=== PATIENT | female | born 1975 | race Caucasian/White ===

== ENCOUNTER 2020-09-18 15:01 | Outpatient (CLI) | payer MEDICAID ==
--- NOTE | 2020-09-18 16:47 | XRAY Report ---
PROCEDURE: Shoulder 3 View RT INDICATIONS: SHOULDER JOINT PAIN, RIGHT TECHNIQUE: 3 views of the shoulder were acquired. COMPARISON: None. FINDINGS: Bones: No fractures or dislocations. No suspicious bony lesions. Visualized ribs appear intact. Mi ld acromioclavicular narrowing. Residual high riding appearance of the humeral head. Soft tissues: No suspicious soft tissue calcifications. Prominent calcific tendinitis is present. IMPRESSION: 1. Prominent calcific tendinitis. 2. High riding humeral head which can be seen with rotator cuff pathology. Reviewed by: Cintia Jennings MD on 09/18/2020 4:45 PM PST Approved by: Cintia Jennings MD on 09/18/2020 4:45 PM PST Station ID: [id number]
== END 2020-09-18 23:59 ==
LOC: DI.N 15:01
PROVIDERS: ATTEND Nurse Practitioner
DX: M75.31 Calcific tendinitis of right shoulder (principal)

== ENCOUNTER 2021-02-03 08:17 | Outpatient (CLI) | payer MEDICAID ==
[2021-02-03 08:46] LABS: BASOPHILS # (AUTO) 0.1 10^3/uL (0.0-0.1); BASOPHILS % (AUTO) 0.8 %; EOSINOPHILS # (AUTO) 0.3 10^3/uL (0.0-0.7); EOSINOPHILS % (AUTO) 3.5 %; HCT - HEMATOCRIT 41.9 % (37.0-47.0); HGB - HEMOGLOBIN 14.5 g/dL (12.0-16.0); LYMPHOCYTES # (AUTO) 2.7 10^3/uL (1.5-3.5); MEAN CORPUSCULAR HGB CONC 34.6 g/dL (32.0-36.0); MEAN CORPUSCULAR VOLUME 89.7 fL (81.0-99.0); MEAN PLATELET VOLUME 9.4 fL (7.9-10.8); MONOCYTES # (AUTO) 0.4 10^3/uL (0.0-1.0); MONOCYTES % (AUTO) 5.4 %; NEUTROPHILS # (AUTO) 3.7 10^3/uL (1.5-6.6); NEUTROPHILS % (AUTO) 51.9 %; PLT - PLATELET COUNT 296 10^3/uL (130-450); RED BLOOD COUNT 4.67 10^6/uL (4.20-5.40); RED CELL DISTRIBUTION WIDTH 12.3 % (12.0-15.0); WHITE BLOOD COUNT 7.1 x10^3/uL (4.8-10.8)
[2021-02-03 09:05] LABS: ALBUMIN 4.8 g/dL (3.2-5.5); ALBUMIN/GLOBULIN RATIO 1.5 (1.0-2.2); ALKALINE PHOSPHATASE 58 IU/L (42-121); ALT ALANINE AMINOTRANSFERASE 73 IU/L (10-60); AST ASPARTATE AMINOTRANSFERASE 50 IU/L (10-42); BILIRUBIN,TOTAL 0.7 mg/dL (0.2-1.0); BUN - BLOOD UREA NITROGEN 13 mg/dL (6-20); CALCIUM 9.6 mg/dL (8.5-10.3); CARBON DIOXIDE - CO2 25 mmol/L (21-32); CHLORIDE 100 mmol/L (101-111); CHOLESTEROL 183 mg/dL; CREATININE 0.7 mg/dL (0.4-1.0); GFR - MDRD 90 (>89); GLUCOSE 119 mg/dL (70-100); HDL CHOLESTEROL 46 mg/dL; LDL CHOLESTEROL,CALCULATED 101 mg/dL; LDL/HDL RATIO 2.2 (<4.4); POTASSIUM 3.9 mmol/L (3.5-5.0); SODIUM 137 mmol/L (135-145); TRIGLYCERIDES 180 mg/dL; VLDL CHOLESTEROL 36 mg/dL
[2021-02-03 09:15] LABS: THYROID STIMULATING HORMONE 2.16 uIU/mL (0.34-5.60)
[2021-02-03 12:01] LABS: ESTIMATED AVERAGE GLUCOSE 143 mg/dL (70-100); HEMOGLOBIN A1c% 6.6 % (4.27-6.07)
== END 2021-02-03 08:18 | disposition home or self-care (01) ==
LOC: LAB 08:17
PROVIDERS: ATTEND Physician Assistant
DX: R35.8 Other polyuria (principal); R63.1 Polydipsia; R53.83 Other fatigue; Z83.3 Family history of diabetes mellitus; L65.9 Nonscarring hair loss, unspecified; Z83.49 Family history of other endocrine, nutritional and metabolic diseases
CPT/HCPCS: 36415; 80053; 80061; 83036; 83721; 84443; 85025

== ENCOUNTER 2021-04-29 15:11 | Outpatient (CLI) | payer MEDICAID ==
--- NOTE | 2021-04-29 16:55 | MRI Report ---
PROCEDURE: Shoulder RT W/O INDICATIONS: CALCIFIC TENDINITIS OF RIGHT SHOULDER TECHNIQUE: Noncontrast oblique coronal T2 fast spin echo with fat saturation, oblique sagittal T1 spin echo and T2 fast spin echo with fat saturation, axial T1 spin echo and T2 fast spin echo with fat saturation t hrough the shoulder. COMPARISON: Right shoulder radiograph dated 09/18/2020. FINDINGS: Image quality: Excellent. Rotator cuff: Calcifications involving anterior fibers of distal supraspinatus at its insertion on hu meral head is seen consistent with calcific tendinitis. There is low to moderate grade articular and bursal surface partial-thickness tear involving distal supraspinatus and infraspinatus extending to m usculotendinous junction. Distal subscapularis tendinosis and low-grade intrasubstance partial thickn ess tear is seen. No significant rotator cuff muscle atrophy on sagittal images. Bones and bursae: No bone marrow contusions or fractures. Moderate acromioclavicular joint osteoarth ritic changes are seen with downward osteophyte formation depressing on musculotendinous junction of supraspinatus. Small amount of joint fluid and subacromial subdeltoid bursal fluid is seen. Capsule and soft tissues: There is signal abnormality and contour irregularity involving posterior solis perior labrum at 11 to 12:00 position. The glenohumeral ligaments are intact. The long head of the bi ceps tendinosis and low-grade intrasubstance partial thickness tear is seen. The rotator interval lexy ears normal, without fibrosis. The coracohumeral ligament is normal in thickness. IMPRESSION: 1. Tendinosis andLow to moderate grade articular and bursal surface partial-thickness tear involving distal supraspinatus and infraspinatus extending to musculotendinous junction. Calcific tendinitis in volving distal supraspinatus anterior fibers at its insertion on humeral head. Tendinosis and low-gra de intrasubstance partial thickness tear involving distal subscapularis. No full-thickness rotator cu ff tendon rupture. 2. Moderate acromioclavicular joint osteoarthritis. Small amount of joint fluid and subacromial subde ltoid bursal fluid. 3. Suggestion of posterior superior labral tear at 11 to 12:00 position. 4. Proximal intra-articular portion of long head of biceps tendinosis and low-grade intrasubstance pa rtial thickness tear. Reviewed by: Arthur Villagomez MD on 04/29/2021 4:53 PM PDT Approved by: Arthur Villagomez MD on 04/29/2021 4:53 PM PDT Station ID: [id number]
== END 2021-04-29 15:12 | disposition home or self-care (01) ==
LOC: DI 15:11
PROVIDERS: ATTEND Orthopaedic Surgery
DX: S46.021A Laceration of muscle(s) and tendon(s) of the rotator cuff of right shoulder, initial encounter (principal); M19.011 Primary osteoarthritis, right shoulder; S46.121A Laceration of muscle, fascia and tendon of long head of biceps, right arm, initial encounter; R93.6 Abnormal findings on diagnostic imaging of limbs; M75.51 Bursitis of right shoulder; M25.411 Effusion, right shoulder

== ENCOUNTER 2021-05-25 07:31 | Outpatient (CLI) | payer MEDICAID ==
[2021-05-25 07:59] LABS: CALCIUM 9.5 mg/dL (8.5-10.3); CREATININE 0.9 mg/dL (0.4-1.0); POTASSIUM 4.2 mmol/L (3.5-5.0)
[2021-05-25 08:09] LABS: CREATININE,URINE 278.1 mg/dL; MICROALBUMIN,URINE 1.1 mg/dL (0-300.0)
[2021-05-25 08:39] LABS: ESTIMATED AVERAGE GLUCOSE 120 mg/dL (70-100); HEMOGLOBIN A1c% 5.8 % (4.27-6.07)
== END 2021-05-25 07:32 | disposition home or self-care (01) ==
LOC: LAB 07:31
PROVIDERS: ATTEND Internal Medicine
DX: E11.9 Type 2 diabetes mellitus without complications (principal)
CPT/HCPCS: 36415; 80048; 82043; 82570; 83036

== ENCOUNTER 2021-06-09 07:19 | Day surgery (SDC) | payer MEDICAID ==
[~2021-06-09 07:19] MED LIST: ACETAMINOPHEN 1,000 MG/100 ML 100 ML IV ONE; CELECOXIB 100 MG CAPSULE PO ONE
[2021-06-09] MEDS ORDERED: LACTATED RINGERS 1,000 ML IV ONE ×2 (07:27→11:00)
[2021-06-09 08:00] LABS: HCG UR QUAL NEGATIVE
[2021-06-09] MEDS ORDERED: oxyCODONE 5 MG TABLET PO PRN (08:01)
[2021-06-09] MEDS ORDERED: KETOROLAC 15 MG/ML VIAL IVP STA (08:01)
[2021-06-09] MEDS ORDERED: PROPOFOL 200 MG/20 ML VIAL IVP ONE ×2 (08:10→10:57)
[2021-06-09] MEDS ORDERED: LIDOCAINE-MPF 2% 5 ML VIAL ONE (08:10)
[2021-06-09] MEDS ORDERED: fentaNYL 100 MCG/2 ML VIAL ONE (08:11)
[2021-06-09] MEDS ORDERED: ePHEDrine 50 MG/ML VIAL IVP PRN (08:11)
[2021-06-09] MEDS ORDERED: METOCLOPRAMIDE 10 MG/2 ML VIAL IVP PRN (08:11)
[2021-06-09] MEDS ORDERED: ONDANSETRON 4 MG/2 ML VIAL IVP PRN (08:11)
[2021-06-09] MEDS ORDERED: MIDAZOLAM 2 MG/2 ML VIAL ONE (08:11)
[2021-06-09] MEDS ORDERED: ROCURONIUM 50 MG/5 ML VIAL ONE (08:11)
[2021-06-09] MEDS ORDERED: NALOXONE 0.4 MG/ML VIAL IVP PRN (08:11)
[2021-06-09] MEDS ORDERED: ATROPINE ABBOJECT 1 MG/10 ML SYRINGE IVP PRN (08:11)
--- NOTE | 2021-06-09 08:11 | ANESTHESIA ---
Pre-Anesthesia VS, & Labs - Diagnosis R shoulder calcific tendonitis - Procedure R shoulder arthroscopy Vital Signs: Temp Pulse Resp BP Pulse Ox 36.2 C L 67 15 117/75 97 06/09/21 07:36 06/09/21 07:36 06/09/21 07:36 06/09/21 07:36 06/09/21 07:36 Height: 5 ft 7 in Weight (kg): 105.1 kg Body Mass Index: 36.3 BMI Classification: Obese - NPO >8 hours - Is Patient ?: No - Lab Results Current Lab Results: Laboratory Tests 06/09/21 07:42: POC Whole Bld Glucose 109 H Home Medications and Allergies Home Medications: Ambulatory Orders Diclofenac Sodium Dr [Voltaren] 75 mg PO BID PRN 06/03/21 metFORMIN [Glucophage] 1,000 mg PO QPM 06/03/[address] [Voltaren] 75 mg PO BID PRN 06/03/21 metFORMIN [Glucophage] 1,000 mg PO QPM 06/03/21 Allergies/Adverse Reactions: Allergies Allergy/AdvReac Type Severity Reaction Status Date / Time No Known Drug Allergies Allergy Verified 06/03/21 14:25 Anes History & Medical History - Anesthetic History Anesthesia Complications: reports: No previous complications Family history of Anesthesia Complications: Denies Family history of Malignant Hyperthermia: Denies - Medical History Cardiovascular: reports: None Pulmonary: reports: Asthma Gastrointestinal: reports: None Urinary: reports: None Musculoskeletal: reports: None Endocrine/Autoimmune: reports: Type 2 diabetes Skin: reports: Psoriasis Psychosocial: reports: Other (hx of substance abuse and recovering addict. requests no narcotics) - Surgical History General: reports: Cholecystectomy Gynecologic: reports: Tubal ligation Orthopedic: reports: 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 surgery Exam General: Alert, Oriented x3, Cooperative Dental: WNL Mouth Openin Fingerbreadth Neck Mobility: Normal Mallampati classification: II Thyromental Distance: 4-6 cm Respiratory: Lungs clear Cardiovascular: Regular rate Plan Anesthesia Type: General, Interscalene Block Consent for Procedure(s) Verified and Reviewed: Yes Code Status: Attempt Resuscitation ASA classification: 2-Mild systemic disease Is this case an emergency?: No
[2021-06-09] MEDS ORDERED: ROPIVACAINE 0.5% PF 20 ML AMPULE ONE (08:13)
[2021-06-09] MEDS ORDERED: LACTATED RINGERS 1,000 ML IV SCH (09:00)
[2021-06-09] MEDS ORDERED: ceFAZolin 1 GM VIAL ONE (09:15)
[2021-06-09] MEDS ORDERED: ONDANSETRON 4 MG/2 ML VIAL ONE (09:27)
[2021-06-09] MEDS ORDERED: DEXAMETHASONE 4 MG/ML VIAL ONE (09:28)
[2021-06-09] MEDS ORDERED: KETAMINE 500 MG/10 ML VIAL ONE (09:34)
[2021-06-09] MEDS ORDERED: PHENYLEPHRINE 10 MG/ML VIAL ONE (09:56)
[2021-06-09] MEDS ORDERED: SEVOFLURANE 250 ML LIQUID INH ONE (09:59)
[2021-06-09] MEDS ORDERED: SUGAMMADEX 200 MG/2 ML VIAL IVP ONE (10:46)
--- NOTE | 2021-06-09 10:56 | OPERATIVE REPORT ---
Operative Report - General Procedure Date: 06/09/21 Planned Procedure: Arthroscopy right shoulder with excision of calcium deposit right shoulder Pre-Op Diagnosis: Calcific tendinitis right shoulder Procedure Performed: Arthroscopy right shoulder, subacromial debridement and excision of calcific deposit Post Op Diagnosis: Same as preoperative diagnosis - Procedure Note Primary Surgeon: Julius Aguila MD Secondary Surgeon: Isaias GONZALES Anesthesia Provider: Doris Delacruz CRNA Anesthesia Technique: General ET tube, Regional block Estimated Blood Loss (mL): 5 Indications: This is a 45-year-old diabetic woman with chronic activity related pain to right shoulder with localized findings to the lateral shoulder with pain, tenderness, painful arc of motion, positive impingement sign. Her routine radiographs showed a large calcific deposit in the subacromial space. Her MRI scan showed tendinosis and partial tearing but no full-thickness tears. There is also evidence of a calcific deposit within the rotator cuff right shoulder. Because of the lack of improvement with nonoperative measures, patient has elected surgical procedure consisting of arthroscopy and excision of calcific deposit from the subacromial space right shoulder Findings: There was minimal fraying of the anterior and superior labrum. Her biceps tendon was intact. The rotator interval appeared normal. The subscapularis had very slight fraying but was completely intact. The articular surfaces of the humeral head and glenoid appeared normal. The rotator cuff footprint appeared normal on glenohumeral arthroscopy. The subacromial space was where the abnormal findings primarily existed. This consisted of a bursal proliferation or subacromial bursitis with multiple pockets of calcium deposit near the rotator cuff footprint of the tuberosity. There is no full-thickness tears but there were partial tears close to the insertion of the supraspinatus but not enough to warrant repair. The amount of calcium deposit was quite extensive and was in multiple locations along the footprint of the greater tuberosity. Complications: None - Other Other Information/Narrative: After satisfactory anesthesia was achieved, patient was placed in a beachchair position with the patient in a semisitting position. She was secured in this position and a padded facemask was applied to hold the cervical spine in a neutral position. The right shoulder and right upper extremity were prepped and draped in a sterile manner in the usual fashion. A timeout procedure was performed by the entire operating room team and all were in agreement. The bony landmarks of the right shoulder were outlined with a sterile marking pen including the portals. Posterior glenohumeral arthroscopy was performed with the [place] 4 mm 30 degree of like diagnostic arthroscope in conjunction with Trusper video camera, Arthrex pump through the scope. Complete glenohumeral arthroscopy was performed. The arthroscope was then reintroduced into the subacromial space from the posterior portal. A lateral subacromial portal was established. The bursa was debrided with the full-radius shaver and Arthrex radiofrequency probe, 90 degree angle. After excision of the anterior bursa, the calcium deposit was readily encountered. The calcium deposit was debrided using spinal needle, radiofrequency probe and shaver with suction to try to break up the deposit and remove the deposit. There are multiple large pockets some soft here and some harder but all of the calcium that could be visualized was removed and was quite extensive. The rotator cuff was probed and examined, partial tearing but still stable rotator cuff on the bursal side, no tears on the articular side. The arthroscopic incision sites were closed with nylon, 2 oh, dry sterile dressing and Xeroform. A sling was applied. She received 2 g of Ancef intravenously. She tolerated procedure well. A physician planning assistant was utilized and was felt to be necessary for positioning, draping, arm position and help with the instrumentation necessary to extract the calcium deposit.
--- NOTE | 2021-06-09 12:20 | CONSULTATION NOTE ---
Consultation Report: 1157 called to the bedside by SURVEILLANCE INSPECTOR for pt c/o CP 7/10, substernal with inspiration. Pt hemodynamically stable. +BBS. CTA. 12L EKG and portable CXR ordered STAT. 1202 EKG at the bedside, NO ST elevation or acute changes noted. Pt reports CP currently 5/10 and decreasing in nature. VSS.
--- NOTE | 2021-06-09 12:24 | XRAY Report ---
PROCEDURE: Chest 1 View X-Ray INDICATIONS: substernal chest pain, hurts to take a deep breath TECHNIQUE: One view of the chest was acquired. COMPARISON: None. FINDINGS: SUPPORT DEVICES: None. LUNG/PLEURA: Right basilar platelike densities with elevation of the diaphragm, likely reflecting ate lectasis. No pleural effusion or space-occupying pneumothorax. MEDIASTINUM: The cardiomediastinal silhouette is within normal limits. BONES/SOFT TISSUES: No acute abnormality. IMPRESSION: 1.No acute cardiopulmonary abnormality. Reviewed by: Rj Godinez MD on 06/09/2021 12:22 PM PDT Approved by: Rj Godinez MD on 06/09/2021 12:22 PM PDT Station ID: [id number]
--- NOTE | 2021-06-09 12:24 | CONSULTATION NOTE ---
Consultation Report: Pt reports pain completely resolved, 0/10. VSS. Pt asymptomatic. Pt ok to be discharged
[2021-06-09 12:56] VITALS: BP 115/64
--- NOTE | 2021-06-09 16:59 | ANESTHESIA POST OP EVALUATION ---
Anesthesia Post Eval - Post Anesthesia Eval Vitals: Last Vital Signs Temp 36.5 C 06/09/21 12:40 Pulse 73 06/09/21 12:40 Resp 17 06/09/21 12:40 BP 115/64 06/09/21 12:40 Pulse Ox 93 06/09/21 12:40 CV Function Including HR & BP: Stable Pain Control: Satisfactory Nausea & Vomiting: Negative Mental Status: Baseline Respiratory Status: Airway Patent Hydration Status: Satisfactory Anesthesia Complications: None
== END 2021-06-09 07:20 | disposition home or self-care (01) ==
LOC: SDS 07:19
PROVIDERS: ATTEND Orthopaedic Surgery
DX: M75.31 Calcific tendinitis of right shoulder (principal); M75.111 Incomplete rotator cuff tear or rupture of right shoulder, not specified as traumatic; R07.89 Other chest pain; E11.9 Type 2 diabetes mellitus without complications; Z79.84 Long term (current) use of oral hypoglycemic drugs
CPT/HCPCS: 29822; 71045; 81025; 93005; A9270; C1713; J0131; J3490; J7120

== ENCOUNTER 2021-11-19 08:07 | Outpatient (CLI) | payer MEDICAID ==
[2021-11-19 08:30] LABS: BASOPHILS # (AUTO) 0.1 10^3/uL (0.0-0.1); EOSINOPHILS # (AUTO) 0.3 10^3/uL (0.0-0.7); EOSINOPHILS % (AUTO) 4.7 %; HCT - HEMATOCRIT 40.4 % (37.0-47.0); HGB - HEMOGLOBIN 13.9 g/dL (12.0-16.0); LYMPHOCYTES # (AUTO) 2.6 10^3/uL (1.5-3.5); LYMPHOCYTES % (AUTO) 38.6 %; MEAN CORPUSCULAR HEMOGLOBIN 30.8 pg (27.0-31.0); MEAN CORPUSCULAR HGB CONC 34.4 g/dL (32.0-36.0); MEAN CORPUSCULAR VOLUME 89.4 fL (81.0-99.0); MEAN PLATELET VOLUME 9.4 fL (7.9-10.8); MONOCYTES # (AUTO) 0.5 10^3/uL (0.0-1.0); MONOCYTES % (AUTO) 7.5 %; NEUTROPHILS # (AUTO) 3.3 10^3/uL (1.5-6.6); NEUTROPHILS % (AUTO) 48.1 %; PLT - PLATELET COUNT 304 10^3/uL (130-450); RED BLOOD COUNT 4.52 10^6/uL (4.20-5.40); RED CELL DISTRIBUTION WIDTH 12.3 % (12.0-15.0); WHITE BLOOD COUNT 6.8 x10^3/uL (4.8-10.8)
[2021-11-19 08:48] LABS: ALBUMIN 4.1 g/dL (3.2-5.5); ALBUMIN/GLOBULIN RATIO 1.2 (1.0-2.2); BILIRUBIN,TOTAL 0.5 mg/dL (0.2-1.0); CALCIUM 9.2 mg/dL (8.5-10.3); CREATININE 0.8 mg/dL (0.4-1.0); POTASSIUM 4.2 mmol/L (3.5-5.0); TOTAL PROTEIN 7.5 g/dL (6.7-8.2)
[2021-11-19 09:43] LABS: ESTIMATED AVERAGE GLUCOSE 134 mg/dL (70-100); HEMOGLOBIN A1c% 6.3 % (4.27-6.07)
== END 2021-11-19 08:08 | disposition home or self-care (01) ==
LOC: LAB 08:07
PROVIDERS: ATTEND Internal Medicine
DX: E11.9 Type 2 diabetes mellitus without complications (principal)
CPT/HCPCS: 36415; 80053; 83036; 85025

== ENCOUNTER 2021-12-12 16:12 | Emergency (ER) | payer MEDICAID ==
--- NOTE | 2021-12-12 16:31 | ED Physician Documentation ---
PD HPI BACK PAIN - Stated complaint Stated Complaint: LEFT SIDED BACK PX - Chief complaint Chief Complaint: Back Pain - History obtained from History obtained from: Patient - Additional information Additional information: 46-year-old woman with type 2 diabetes and psoriasis presents with left-sided mid back pain starting yesterday and severe today. Heat helped a little bit. Movement does not seem to make it worse. No history of renal colic or urinary complaints. She has a history of narcotic dependence and would like to avoid narcotics for the pain. It hurts to take a brief deep breath but she is not short of breath. Review of Systems Ten Systems: 10 systems reviewed and negative Constitutional: denies: Fever, Chills Eyes: reports: Reviewed and negative Ears: reports: Reviewed and negative Cardiac: reports: Reviewed and negative PD PAST MEDICAL HISTORY - Past Medical History Cardiovascular: None Respiratory: Asthma Endocrine/Autoimmune: Type 2 diabetes GI: None : None HEENT: Chronic vision loss Psych: None Musculoskeletal: None Derm: Psoriasis - Past Surgical History General: Cholecystectomy Ortho: 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 surgery /[employer]IST: Tubal ligation - Present Medications Home Medications: Ambulatory Orders Medication Instructions Recorded Confirmed Diclofenac Sodium Dr [Voltaren] 75 mg PO BID PRN 06/03/21 06/03/21 metFORMIN [Glucophage] 1,000 mg PO QPM 06/03/21 06/03/21 - Allergies Allergies/Adverse Reactions: Allergies Allergy/AdvReac Type Severity Reaction Status Date / Time No Known Drug Allergies Allergy Verified 12/12/21 16:19 PD ED PE NORMAL - Vitals Vital signs reviewed: Yes - General General: Alert and oriented X 3, Other (She appears uncomfortable and is stand ing beside the side of the bed.) - HEENT HEENT: PERRL, EOMI - Neck Neck: Supple, no meningeal sign, No bony TTP - Cardiac Cardiac: RRR, No murmur - Respiratory Respiratory: No respiratory distress, Clear bilaterally - Abdomen Abdomen: Normal bowel sounds, Soft, Non tender - Back Back: No CVA TTP, No spinal TTP - Derm Derm: Other (Diffuse psoriasis changes) - Neuro Neuro: Alert and oriented X 3, Normal speech - Psych Psych: Normal mood, Normal affect Results - Vitals Vitals: Vital Signs - 24 hr 12/12/21 16:17 Temperature 37.2 C Heart Rate 108 H Respiratory 16 Rate Blood Pressure 137/69 H O2 Saturation 97 Oxygen O2 Source Room air - Labs Labs: Laboratory Tests 12/12/21 12/12/21 12/12/21 16:50 16:50 17:20 WBC 12.9 H RBC 4.22 Hgb 13.2 Hct 37.4 MCV 88.6 MCH 31.3 H MCHC 35.3 RDW 12.2 Plt Count 313 MPV 9.3 Neut # (Auto) 8.3 H Lymph # (Auto) 3.3 [place] # (Auto) 0.9 Eos # (Auto) 0.3 Baso # (Auto) 0.1 Absolute Nucleated RBC 0.00 Nucleated RBC % 0.0 D-Dimer Sodium 139 Potassium 3.9 Chloride 103 Carbon Dioxide 25 Anion Gap 11.0 BUN 14 Creatinine 0.9 Estimated GFR (MDRD) 67 L Glucose 109 H Calcium 9.6 Total Bilirubin 0.4 AST 32 ALT 44 Alkaline Phosphatase 56 Total Protein 7.9 Albumin 4.6 Globulin 3.3 Albumin/Globulin Ratio 1.4 Lipase 31 Urine Color YELLOW Urine Clarity CLEAR Urine pH 6.0 Ur Specific [place] >=1.030 H Urine Protein NEGATIVE Urine Glucose (UA) NEGATIVE Urine Ketones NEGATIVE Urine Occult Blood TRACE-INTA Urine Nitrite NEGATIVE Urine Bilirubin NEGATIVE Urine Urobilinogen 0.2 (NORMAL) Ur Leukocyte Esterase NEGATIVE Ur Microscopic Review NOT INDICATED Urine Culture Comments NOT INDICATED Urine HCG, Qual NEGATIVE 12/12/21 18:10 WBC RBC Hgb Hct MCV MCH MCHC RDW Plt Count MPV Neut # (Auto) Lymph # (Auto) [place] # (Auto) Eos # (Auto) Baso # (Auto) Absolute Nucleated RBC Nucleated RBC % D-Dimer < 200.0 L Sodium Potassium Chloride Carbon Dioxide Anion Gap BUN Creatinine Estimated GFR (MDRD) Glucose Calcium Total Bilirubin AST ALT Alkaline Phosphatase Total Protein Albumin Globulin Albumin/Globulin Ratio Lipase Urine Color Urine Clarity Urine pH Ur Specific [place] Urine Protein Urine Glucose (UA) Urine Ketones Urine Occult Blood Urine Nitrite Urine Bilirubin Urine Urobilinogen Ur Leukocyte Esterase Ur Microscopic Review Urine Culture Comments Urine HCG, Qual PD MEDICAL DECISION MAKING - ED course ED course: This is a 46-year-old woman presents with severe left flank pain that is acute. No history of prior renal colic or similar issues in the past. She looked quite uncomfortable pacing and rocking at the side of the bed. She did get some relief with divided doses of medications here. Noting that she declined narcotics based on a previous history of abuse. Initial noncontrast CT did not show any explanation for the pain. It showed some chronic changes at L5, but nothing that would explain left flank pain. Given the concern for vascular etiology this was repeated with IV contrast and no evidence of vascular issue. Her pain was improved at that point albeit not gone. I discussed with her that I am not clear the source of her pain, but most bad etiologies have been ruled out. On reexamination there is no skin change or tenderness to suggest an infection. We agreed to discharge her but she will return in a little over 12 hours if not better for reexamination. Departure - Departure Disposition: 01 Home, Self Care Clinical Impression: Left flank pain Condition: Good Record reviewed to determine appropriate education?: Yes Instructions: ED Neck Back Pain General Comments: As discussed, the cause of your pain today was not clear. No serious abnormalities were identified, that said given the inconclusive nature of your test and lack of a specific diagnosis I would like you to return at breakfast time tomorrow if still in pain or Sooner if any new symptoms happen or if your pain worsens. Forms: Activity restrictions
[2021-12-12 16:55] LABS: BASOPHILS # (AUTO) 0.1 10^3/uL (0.0-0.1); BASOPHILS % (AUTO) 0.5 %; EOSINOPHILS # (AUTO) 0.3 10^3/uL (0.0-0.7); EOSINOPHILS % (AUTO) 2.6 %; HCT - HEMATOCRIT 37.4 % (37.0-47.0); HGB - HEMOGLOBIN 13.2 g/dL (12.0-16.0); LYMPHOCYTES # (AUTO) 3.3 10^3/uL (1.5-3.5); LYMPHOCYTES % (AUTO) 25.3 %; MEAN CORPUSCULAR HEMOGLOBIN 31.3 pg (27.0-31.0); MEAN CORPUSCULAR HGB CONC 35.3 g/dL (32.0-36.0); MEAN CORPUSCULAR VOLUME 88.6 fL (81.0-99.0); MEAN PLATELET VOLUME 9.3 fL (7.9-10.8); MONOCYTES # (AUTO) 0.9 10^3/uL (0.0-1.0); MONOCYTES % (AUTO) 6.7 %; NEUTROPHILS # (AUTO) 8.3 10^3/uL (1.5-6.6); NEUTROPHILS % (AUTO) 64.5 %; PLT - PLATELET COUNT 313 10^3/uL (130-450); RED BLOOD COUNT 4.22 10^6/uL (4.20-5.40); RED CELL DISTRIBUTION WIDTH 12.2 % (12.0-15.0); WHITE BLOOD COUNT 12.9 x10^3/uL (4.8-10.8)
[2021-12-12] MEDS: KETOROLAC 15 MG/ML VIAL IVP STA ×2 (17:03→17:59)
[2021-12-12] MEDS: LIDOCAINE-MPF 2% 6 ML in SODIUM CHLORIDE 0.9% 50 ML IV STA (17:03)
[2021-12-12 17:09] LABS: ALBUMIN 4.6 g/dL (3.2-5.5); ALBUMIN/GLOBULIN RATIO 1.4 (1.0-2.2); BILIRUBIN,TOTAL 0.4 mg/dL (0.2-1.0); CALCIUM 9.6 mg/dL (8.5-10.3); CREATININE 0.9 mg/dL (0.4-1.0); POTASSIUM 3.9 mmol/L (3.5-5.0); TOTAL PROTEIN 7.9 g/dL (6.7-8.2)
--- NOTE | 2021-12-12 17:16 | CT Report ---
PROCEDURE: CT abdomen and pelvis without contrast INDICATIONS: L flank pain TECHNIQUE: Noncontrast 5 mm thick sections acquired from the diaphragms to the symphysis. 5 mm coronal and sagi ttal reformats were then performed. For radiation dose reduction, the following was used: automated exposure control, adjustment of mA and/or kV according to patient size. COMPARISON: None. FINDINGS: Image quality: Excellent. ABDOMEN: Lung bases: Lung bases are clear. Heart size is normal. Solid organs: Liver and spleen are normal in size other than hepatic fatty infiltration. Gallbladde r surgically absent. Pancreas is normal in contours. No adrenal nodules. Kidneys are normal in siz e, without hydronephrosis or nephrolithiasis. Peritoneum and bowel: Unenhanced bowel loops demonstrate normal wall thickness and caliber. No free fluid or air. Nodes and vessels: No retroperitoneal or mesenteric adenopathy by size criteria. Aorta and inferior vena cava are normal in caliber. Miscellaneous: No ventral hernias. PELVIS: Genitourinary: Bladder wall thickness is normal. Miscellaneous: No inguinal hernias or adenopathy. Bones: No suspicious bony lesions. No vertebral body compression fractures. Bilateral L5 pars defe cts with grade 1 anterior spondylolisthesis IMPRESSION: 1. No acute CT findings in the abdomen and pelvis. 2. Incidental L5 isthmic spondylolisthesis, grade 1 Reviewed by: Lester Scott MD on 12/12/2021 4:15 PM [email or web address] Approved by: Lester Scott MD on 12/12/2021 4:15 PM AKDT Station ID: [id number]
[2021-12-12 17:31] LABS: BILIRUBIN,URINE NEGATIVE (NEGATIVE); GLUCOSE, URINE (UA) NEGATIVE (NEGATIVE); KETONES,URINE (UA) NEGATIVE (NEGATIVE); LEUKOCYTE ESTERASE, URINE NEGATIVE (NEGATIVE); NITRITE,URINE NEGATIVE (NEGATIVE); OCCULT BLOOD,URINE TRACE-INTA (NEGATIVE); PROTEIN,URINE NEGATIVE (NEGATIVE); UROBILINOGEN,URINE 0.2 (NORMAL) E.U./dL (NORMAL)
[2021-12-12 17:34] LABS: CLARITY,URINE CLEAR (CLEAR); HCG UR QUAL NEGATIVE
[2021-12-12] MEDS: ACETAMINOPHEN 500 MG TABLET PO STA (18:02)
[2021-12-12] MEDS: LIDOCAINE PATCH 5% TOP STA (18:03)
[2021-12-12] MEDS ORDERED: IOVERSOL 320 50 ML VIAL ONE ×2 (18:24→18:44)
[2021-12-12] MEDS: IOVERSOL 320 50 ML VIAL IVP ONE (18:52)
--- NOTE | 2021-12-12 18:56 | CT Report ---
PROCEDURE: Abdomen/Pelvis W INDICATIONS: Left flank pain, severe and intractable, IV only CONTRAST: IV CONTRAST: Optiray 320 ml: 100 PO CONTRAST: *NO PO CONTRAST TECHNIQUE: After the administration of contrast, 5 mm thick sections acquired from the diaphragms to the sym physis. 5 mm thick coronal and sagittal reformats were acquired. For radiation dose reduction, the following was used: automated exposure control, adjustment of mA and/or kV according to patient size . COMPARISON: None. FINDINGS: Image quality: Excellent. ABDOMEN: Lung bases: Lung bases are clear. Heart size is normal. Solid organs: Liver and spleen are normal in size and demonstrate low density consistent with hepati c steatosis. Gallbladder demonstrates prior cholecystectomy. Biliary system is non dilated. Pancre as enhances normally. No adrenal nodules. Kidneys demonstrate normal size and enhancement, without hydronephrosis. No nephroureterolithiasis. Peritoneum and bowel: Bowel loops demonstrate normal wall thickness and caliber. No free fluid or a ir. The appendix is normal. Nodes and vessels: No retroperitoneal or mesenteric adenopathy by size criteria. Aorta and inferior vena cava are normal in size. Miscellaneous: No ventral hernias. PELVIS: Genitourinary: Bladder wall thickness is normal. Miscellaneous: No inguinal hernias or adenopathy. Bones: No suspicious bony lesions. No vertebral body compression fractures. IMPRESSION: 1. No acute abdominal or pelvic abnormality. 2. Hepatic steatosis. Reviewed by: Azam Eldridge on 12/12/2021 6:54 PM PDT Approved by: Azam Eldridge on 12/12/2021 6:54 PM PDT Station ID: [id number]
--- NOTE | 2021-12-12 19:17 | CT Report ---
PROCEDURE: ANGIO CHEST W/WO INDICATIONS: Left flank pain, severe and intractable, IV only TECHNIQUE: After the administration of intravenous contrast, 1 mm axial images were acquired from the pulmonary apices through the posterior costophrenic angles. Axial 5 mm soft tissue kernel reconstructions were performed as well as 8 mm axial MIP and coronal and sagittal 5 mm reformations. For radiation dose reduction, the following was used: automated exposure control, adjustment of mA and/or kV according to patient size. COMPARISON: None. FINDINGS: Image quality: Excellent. Lungs and pleura: No acute air space opacities. No pleural effusions or pneumothorax. Central and peripheral airways are patent and normal in caliber. Mediastinum: Heart size is normal. No pericardial effusion. No mediastinal or hilar adenopathy by size criteria. The thoracic aorta is normal. There is suboptimal opacification of the pulmonary arter y with the pulmonary artery measuring 135 Hounsfield units. No central pulmonary embolism. A smaller peripheral pulmonary artery embolus cannot be excluded. Bones and chest wall: No suspicious bony lesions. No vertebral body compression fractures. No axil barron or supraclavicular adenopathy by size criteria. Thyroid gland is normal. Abdomen: Visualized upper abdominal solid organs appear normal. Upper abdominal bowel loops are nor mal in caliber. IMPRESSION: 1. No central pulmonary embolism. Peripheral subsegmental pulmonary emboli cannot be excluded due to suboptimal bolus timing. 2. No acute abnormality of the chest. Reviewed by: Azam Eldridge on 12/12/2021 7:16 PM PDT Approved by: Azam Eldridge on 12/12/2021 7:16 PM PDT Station ID: [id number]
[2021-12-12 19:36] VITALS: BP 115/64
== END 2021-12-12 19:36 | disposition home or self-care (01) ==
LOC: ED 16:12
DX: R10.9 Unspecified abdominal pain (principal)
CPT/HCPCS: 36415; 71275; 74176; 74177; 80053; 81003; 81025; 83690; 85025; 85379; 96374; 96375; 96376; 99282; 99284; A9270; J7040; 81001; 87086

== ENCOUNTER 2021-12-13 10:12 | Emergency (ER) | payer MEDICAID ==
--- NOTE | 2021-12-13 11:25 | ED Physician Documentation ---
History of Present Illness - Stated complaint Stated Complaint: L SIDE FLANK PX - Chief complaint Chief Complaint: Abd Pain - History obtained from History obtained from: Patient - History of Present Illness Timing: How many days ago (3) - Additonal information Additional information: 46-year-old female with acute left sided flank pain that started about 3 days ago was seen in the emergency department yesterday and had a full work-up done by Dr. Kerr. She had both a noncontrast and contrast CT without findings. She did not have pain associated with movement yesterday. Overnight she has increased pain and she now describes the pain as a sharp electrical-like shock periodically that is severe and a dull ache continuous it is in a stripe on the side of her body from her back around to the front. She does have psoriasis there are skin changes over the area but not pathognomic. Review of Systems Constitutional: denies: Fever Ears: denies: Ear pain Nose: denies: Congestion Throat: denies: Sore throat Cardiac: denies: Chest pain / pressure, Palpitations Respiratory: denies: Dyspnea, Cough GI: reports: Abdominal Pain. denies: Nausea, Vomiting, Constipation, Diarrhea : denies: Dysuria Skin: reports: Rash (psoriasis is not changed from baseline .) Musculoskeletal: reports: Back pain. denies: Neck pain PD PAST MEDICAL HISTORY - Past Medical History Cardiovascular: None Respiratory: Asthma Endocrine/Autoimmune: Type 2 diabetes GI: None : None HEENT: Chronic vision loss Psych: None Musculoskeletal: None Derm: Psoriasis - Past Surgical History Past Surgical History: Yes General: Cholecystectomy Ortho: 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 surgery /RN DOCUMENT IMPROVEMENT: Tubal ligation - Present Medications Home Medications: Ambulatory Orders Medication Instructions Recorded Confirmed Diclofenac Sodium Dr [Voltaren] 75 mg PO BID PRN 06/03/21 12/13/21 metFORMIN [Glucophage] 1,000 mg PO QPM 06/03/21 12/13/21 Doxepin [SINEquan] 25 mg PO Q8HR PRN #30 cap 12/13/21 Valacyclovir HCl [Valtrex] 1,000 mg PO TID #21 tablet 12/13/21 - Allergies Allergies/Adverse Reactions: Allergies Allergy/AdvReac Type Severity Reaction Status Date / Time No Known Drug Allergies Allergy Verified 12/13/21 10:17 - Social History Does the pt smoke?: No Smoking Status: Never smoker PD ED PE NORMAL - Vitals Vital signs reviewed: Yes (Normal) - General General: Alert and oriented X 3, Well developed/nourished, Other (Standing at the bedside leaning slightly to the right. Appears to periodically wince in pain.) - HEENT HEENT: Atraumatic, PERRL, EOMI - Respiratory Respiratory: No respiratory distress - Derm Derm: Normal color, Warm and dry, Other (There is a rash typical of psoriasis present on the patient's back there are several small dots that are slightly different than the rash and initial palpation needs to increase symptom. The distribution of the patient's pain is consistent with a nerve dermatome.) - Extremities Extremities: No deformity, No edema - Neuro Neuro: Alert and oriented X 3, control analyst 2-12 intact, No motor deficit, No sensory deficit, Normal speech Eye Opening: Spontaneous Motor: Obeys Commands Verbal: Oriented GCS Score: 15 - Psych Psych: Normal mood, Normal affect Results - Vitals Vitals: Vital Signs - 24 hr 12/13/21 10:14 Temperature 36.2 C L Heart Rate 88 Respiratory 18 Rate Blood Pressure 127/75 O2 Saturation 100 Oxygen O2 Source Room air PD MEDICAL DECISION MAKING - ED course Complexity details: considered differential, d/w patient ED course: 46-year-old female with 3 days of back pain presents today with an increase in this pain that she describes as severe shocklike episodes. Observing the patient have an episode of this pain and appears quite uncomfortable and is consistent with the lancinating pain of herpes zoster. I do see some changes to the skin that may be related. I will prescribe valacyclovir and doxepin for symptom control. Departure - Departure Disposition: 01 Home, Self Care Clinical Impression: Shingles Qualifiers: Herpes zoster complications: without complications Qualified Code(s): B02.9 - Zoster without complications Condition: Stable Instructions: ED Shingles Follow-Up: [facility] [place] [Provider Group] Prescriptions: Doxepin [SINEquan] 25 mg PO Q8HR PRN #30 cap PRN Reason: Pain Valacyclovir HCl [Valtrex] 1,000 mg PO TID #21 tablet Comments: Crystal, today it looks like you likely have the shingles. This is a reactivation of the chickenpox that comes out the end of a nerve. This usually will cause a pain with a sharp electrical-like shock syndrome, that can be quite painful. It usually happens in a "stripe" around your body that is related to a single nerve distribution. I have prescribed some valacyclovir, an antiviral which should help with this over the next 2 to 3 days. For the pain I have prescribed some doxepin which may be helpful. These medications have been E scribed to D[facility] in [place].
[2021-12-13 11:56] VITALS: BP 135/80
== END 2021-12-13 11:58 | disposition home or self-care (01) ==
LOC: ED 10:12
DX: B02.9 Zoster without complications (principal); E11.9 Type 2 diabetes mellitus without complications; Z79.84 Long term (current) use of oral hypoglycemic drugs
CPT/HCPCS: 99282; 99283

== ENCOUNTER 2021-12-15 00:03 | Emergency (ER) | payer MEDICAID ==
--- NOTE | 2021-12-15 01:20 | ED Physician Documentation ---
History of Present Illness - Stated complaint Stated Complaint: SOA/BODY PX - Chief complaint Chief Complaint: Abd Pain - History obtained from History obtained from: Patient - History of Present Illness Timing: How many days ago (4-5 days) Pain level now: 10 Improved by: no ameliorating factors Worsened by: deep inspiration (pleuritic component) - Additonal information Additional information: c/o 4-5 days of left flank and left upper paralumbar/lower parathoracic pain radiating around to LUQ. T+R for these symptoms from this ED 12/12 and 12/13, with testing that included blood tests, CT A/P with and without contrast, and CTA chest. No diagnosis based on the test results, but on the second ED visit (12/13), shingles/zoster was suspected and she was prescribed doxepin and valcyclovir. 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 : None HEENT: Chronic vision loss Psych: None Musculoskeletal: None Derm: Psoriasis - Past Surgical History Past Surgical History: Yes General: Cholecystectomy Ortho: 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 - Present Medications Home Medications: Ambulatory Orders Medication Instructions Recorded Confirmed Diclofenac Sodium Dr [Voltaren] 75 mg PO BID PRN 06/03/21 12/13/21 metFORMIN [Glucophage] 1,000 mg PO QPM 06/03/21 12/13/21 Doxepin [SINEquan] 25 mg PO Q8HR PRN #30 cap 12/13/21 Valacyclovir HCl [Valtrex] 1,000 mg PO TID #21 tablet 12/13/21 Gabapentin [Neurontin] 300 mg PO BID #30 cap 12/15/21 Lidocaine Viscous 2% [Xylocaine 15 ml PO Q4H PRN #100 ml 12/15/21 Viscous 2%] - Allergies Allergies/Adverse Reactions: Allergies Allergy/AdvReac Type Severity Reaction Status Date / Time No Known Drug Allergies Allergy Verified 12/13/21 10:17 - Social History Does the pt smoke?: No Smoking Status: Never smoker Does the pt drink ETOH?: No Does the pt have substance abuse?: No - Immunizations Immunizations are current?: No - POLST Patient has POLST: No PD ED PE NORMAL - Vitals Vital signs reviewed: Yes - General General: Alert and oriented X 3, Well developed/nourished, Other (appears uncomfortable) - HEENT HEENT: Moist mucous membranes - Cardiac Cardiac: RRR, No murmur, No gallop, No rub - Respiratory Respiratory: No respiratory distress, Clear bilaterally - Abdomen Abdomen: Normal bowel sounds, Soft, Non tender, Non distended - Back Back: No CVA TTP, No spinal TTP - Derm Derm: Normal color, Warm and dry, Other (psoriatic lesions on BUE with few small lesions on trunk (back and abdomen); I do not note any lesions in a dermatomal pattern) - Extremities Extremities: No edema Results - Vitals Vitals: Oxygen O2 Source Room air PD MEDICAL DECISION MAKING - ED course Complexity details: reviewed old records, considered differential, d/w patient ED course: Given extensive and unremarkable work-up that was performed 3 days ago, and lack of new signs / symptoms (returns for ongoing pain but no new symptoms), no testing is performed tonight and focus is on symptom control. She does not want any narcotic medications/prescriptions due to h/o drug use (methamphetamines). Given the location of the pain, I would include PUD, esophagitis on differential and thus given maalox/viscous lidocaine and PO protonix. I do not see any lesions suggestive of shingles/zoster, but the description of her pain location is in a dermatomal distribution and this remains on the differential diagnosis. She is also given IM toradol. She says she tried lidocaine patches without improvement. In discussing options for pain control, and considering her request to avoid narcotic medications, I recommended gabapentin and she is given a dose in ED and rx electronically submitted to her pharmacy of choice. I advised her to discontinue the doxepin given that it has been ineffective for this pain and to decrease potential for cumulative side effects in light of starting her on gabapentin. Advised to follow up in outpatient setting and return precautions were discussed and emphasized Departure - Departure Disposition: 01 Home, Self Care Clinical Impression: Left flank pain Condition: Good Instructions: ED Flank Pain Uncertain Cause Prescriptions: Gabapentin [Neurontin] 300 mg PO BID #30 cap Lidocaine Viscous 2% [Xylocaine Viscous 2%] 15 ml PO Q4H PRN #100 ml PRN Reason: Abdominal Pain Comments: I recommend that you stop the doxepin and start the gabapentin. Prescriptions for gabapentin and lidocaine (the numbing medication given to you by mouth during this ER visit) have been electronically submitted to [facility] pharmacy in [place]. The gabapentin has only been prescribed for a two week course. This should be enough time to follow up with your primary care provider; if they feel that you will need more, they can provide a prescription. If you do not receive another prescription, you should only take one tablet once per day for the last three days (to taper the dose). Contact your primary care provider's office this morning when they open to arrange follow up/reevaluation appointment. Discharge Date/Time: 12/15/21 03:40
[2021-12-15] MEDS ORDERED: KETOROLAC 60 MG/2 ML VIAL IM STA (01:48)
[2021-12-15] MEDS ORDERED: GABAPENTIN 100 MG CAPSULE PO STA (01:48)
[2021-12-15] MEDS ORDERED: MAG HYDROX/AL HYDROX/SIMETH 30 ML UDC PO STA (01:49)
[2021-12-15] MEDS ORDERED: LIDOCAINE VISCOUS 2% 15 ML UDC MM STA (01:49)
[2021-12-15] MEDS ORDERED: PANTOPRAZOLE 40 MG TABLET PO STA (01:50)
[2021-12-15 03:09] VITALS: BP 115/70
== END 2021-12-15 03:40 | disposition home or self-care (01) ==
LOC: ED 00:03
DX: E11.9 Type 2 diabetes mellitus without complications (principal); Z79.84 Long term (current) use of oral hypoglycemic drugs
CPT/HCPCS: 96372; 99283; 99284; A9270

== ENCOUNTER 2022-01-08 12:04 | Emergency (ER) | payer MEDICAID ==
[2022-01-08 12:11] VITALS: BP 172/87
--- NOTE | 2022-01-08 12:25 | ED Physician Documentation ---
History of Present Illness - Stated complaint Stated Complaint: LAC RT ARM - Chief complaint Chief Complaint: Laceration - History obtained from History obtained from: Patient - History of Present Illness Timing: Today Pain level max: 2 Pain level now: 1 - Additonal information Additional information: laceration to the R arm from a piece of metal on a couch today. Pt is right handed. Td UTD Better with pressure, nothing makes it worse. Not anticoagulated. 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: No Smoking Status: Never smoker Does the pt drink ETOH?: No Does the pt have substance abuse?: No - Immunizations Immunizations are current?: Yes - POLST Patient has POLST: No PD ED PE NORMAL - Vitals Vital signs reviewed: Yes - General General: Alert and oriented X 3, No acute distress - HEENT HEENT: Moist mucous membranes - Extremities Extremities: Other (Laceration to the dorsal aspect of the right forearm, approximately 8 cm in total length, but the only portion that is open is approximately 3 cm in length. Neurovascularly intact. Subcutaneous) - Neuro Neuro: Alert and oriented X 3 - Psych Psych: Normal mood, Normal affect Results - Vitals Vitals: Vital Signs - 24 hr 01/08/22 12:08 Temperature 36.2 C L Heart Rate 73 Respiratory 16 Rate Blood Pressure 172/87 H O2 Saturation 100 Oxygen O2 Source Room air Procedures - Laceration (location) Right forearm Length in cm: 3 Wound type: Linear, Curved, Into subcut fat, Clean Neurovascular status: Sensory intact, Motor intact, Vascular intact Tendon involvement: Tendon intact Anesthesia: Lidocaine 1% with epi Wound preparation: Irrigated copiously NS Skin layer closure: Nylon, Interrupted, Size #-0 - enter number (4), Sutures - enter # (4) Other: Patient tolerated well, No complications, Neurovascular intact, Dressing applied, Tetanus UTD PD MEDICAL DECISION MAKING - ED course Complexity details: considered differential, d/w patient ED course: Laceration repaired. Tolerated well. Warnings of infection and instructions on wound care given at bedside. Also counseled on how to minimize scarring. Patient counseled regarding signs and symptoms for which I believe and urgent re-evaluation would be necessary. Patient with good understanding of and agreement to plan and is comfortable going home at this time This document was made in part using voice recognition software. While efforts are made to proofread this document, sound alike and grammatical errors may occur. Departure - Departure Disposition: 01 Home, Self Care Clinical Impression: Arm laceration Qualifiers: Encounter type: initial encounter Laterality: right Qualified Code(s): S41.111A - Laceration without foreign body of right upper arm, initial encounter Condition: Good Instructions: ED Laceration Ext Sutr Stap Tape Follow-Up: your,doctor in 10 days for suture removal [Other] Comments: Sutures should be removed in about 10 to 14 days. This can either be done here or with your doctor. Please return if you worsen. Keep the wound clean. Return for redness, swelling or drainage from the wound.
[2022-01-08] MEDS ORDERED: BACITRACIN ZINC OINT 1 PACKET TOP STA (12:41)
--- OUTSIDE RECORDS SUMMARY | 2022-01-08 13:18 | EXTERNAL MEDICAL SUMMARY RPT | Continuity of Care Document ---
:1975 Author Organization [facility] Address [address] [place] [address] Phone Care Team Providers Name Role Phone Crew Unavailable Unavailable Allergies No information. Encounters No information. Medications date description facility 20211215 Methocarbamol 500 MG Oral Tablet Islan d Hospital Problems Procedures date description facility 20211215 [facility] Results No information. Vital Signs date measurement value source 20211215 weight_standard 220 lb 20211215 weight_metric 99.79 kg 20211215 temperature_standard 98.8 F 20211215 temperature_metric 37.11 C 20211215 respiration_rate 16 /min 20211215 height_standard 67 in 20211215 height_metric 170.18 cm 20211215 heart_rate 78 /min 20211215 BP_systolic 117 mm[Hg] 20211215 BP_diastolic 67 mm[Hg] 20211215 BMI 34.4 kg/m2
== END 2022-01-08 12:46 | disposition home or self-care (01) ==
LOC: ED 12:04
DX: S51.811A Laceration without foreign body of right forearm, initial encounter (principal); W26.8XXA Contact with other sharp object(s), not elsewhere classified, initial encounter
CPT/HCPCS: 12002; 99282; A9270

== ENCOUNTER 2022-02-02 08:00 | Outpatient (CLI) | payer MEDICAID ==
--- NOTE | 2022-02-02 09:16 | XRAY Report ---
PROCEDURE: Chest 2 View X-Ray INDICATIONS: COUGH TECHNIQUE: 2 view(s) of the chest. COMPARISON: None. FINDINGS: Surgical changes and devices: None. Lungs and pleura: No pleural effusions or pneumothorax. Lungs are clear. Mediastinum: Mediastinal contours are normal. Heart size is normal. Bones and chest wall: No suspicious bony abnormalities. Soft tissues appear unremarkable. IMPRESSION: No acute cardiopulmonary process demonstrated radiographically. Reviewed by: Joseph Barrett MD on 02/02/2022 9:14 AM PDT Approved by: Joseph Barrett MD on 02/02/2022 9:14 AM PDT Station ID: [id number]
== END 2022-02-02 23:59 | disposition home or self-care (01) ==
LOC: DI.N 08:00
PROVIDERS: ATTEND Family Medicine
DX: R05.9 Cough, unspecified (principal)

== ENCOUNTER 2022-10-14 07:11 | Day surgery (SDC) | payer MEDICAID ==
[2022-10-14] MEDS ORDERED: LACTATED RINGERS 1,000 ML IV ONE (07:30)
--- NOTE | 2022-10-14 08:01 | ANESTHESIA ---
Pre-Anesthesia VS, & Labs Height: 5 ft 7 in Weight (kg): 100.3 kg Body Mass Index: 34.6 BMI Classification: Obese - NPO Other (prep as directed) <Padmaja Godoy E - Last Filed: 10/14/22 07:59> - NPO >8 hours - Is Patient ?: No - Lab Results Lab results reviewed: Yes <Rj Odell P - Last Filed: 10/14/22 08:29> - Diagnosis screening (Padmaja Godoy) - Procedure colonoscopy (Padmaja Godoy) Vital Signs: Temp Pulse Resp BP Pulse Ox O2 Flow Rate 36.2 C L 67 16 133/83 H 98 10/14/22 07:15 10/14/22 07:15 10/14/22 07:15 10/14/22 07:15 10/14/22 07:15 - Lab Results Current Lab Results: Laboratory Tests 10/14/22 07:27: POC Whole Bld Glucose 96 Home Medications and Allergies <Padmaja Gdooy E - Last Filed: 10/14/22 07:59> <Rj Odell P - Last Filed: 10/14/22 08:29> Home Medications: Ambulatory Orders Diclofenac Sodium Dr [Voltaren] 1 tab ORAL DAILY 10/14/22 Gabapentin [Neurontin] 300 mg PO BID PRN 10/14/22 metFORMIN [Glucophage] 1,000 mg PO QPM 06/03/21 methocarbamoL [Methocarbamol] 500 mg PO TID PRN 01/08/[address] [Voltaren] 1 tab ORAL DAILY 10/14/22 Gabapentin [Neurontin] 300 mg PO BID PRN 10/14/22 Allergies/Adverse Reactions: Allergies Allergy/AdvReac Type Severity Reaction Status Date / Time No Known Drug Allergies Allergy Verified 01/08/22 12:10 Anes History & Medical History - Anesthetic History Anesthesia Complications: reports: No previous complications - Medical History Cardiovascular: reports: None Pulmonary: reports: Asthma Gastrointestinal: reports: None Urinary: reports: None Neuro: reports: None Musculoskeletal: reports: Chronic back pain Endocrine/Autoimmune: reports: Type 2 diabetes Blood Disorders: reports: None Skin: reports: Psoriasis Smoking Status: Never smoker - Surgical History General: reports: Cholecystectomy Gynecologic: reports: Tubal ligation Orthopedic: reports: 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 surgery <Padmaja Godoy E - Last Filed: 10/14/22 07:59> - Anesthetic History Anesthesia Complications: reports: No previous complications Family history of Anesthesia Complications: Denies Family history of Malignant Hyperthermia: Denies - Medical History Cardiovascular: reports: None Psychosocial: reports: Opioid (history of abuse, 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, 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) <Rj Odell P - Last Filed: 10/14/22 08:29> Exam Dental: WNL, Other (broken back molar) Mouth Openin Fingerbreadth Neck Mobility: Normal Mallampati classification: II Thyromental Distance: 4-6 cm Respiratory: Lungs clear, Normal breath sounds Cardiovascular: Regular rate Neurological: Normal speech Mental/Cognitive Status: Alert/Oriented X3, Normal for patient Cognitive Status: Within normal limits <Rj Odell P - Last Filed: 10/14/22 08:29> Plan Anesthesia Type: Total IV Consent for Procedure(s) Verified and Reviewed: Yes Code Status: Attempt Resuscitation ASA classification: 2-Mild systemic disease Is this case an emergency?: No <Padmaja Godoy E - Last Filed: 10/14/22 07:59>
[2022-10-14] MEDS ORDERED: PROPOFOL 500 MG/50 ML 500 MG/50 ML VIAL ONE (08:05)
[2022-10-14] MEDS ORDERED: MIDAZOLAM 2 MG/2 ML VIAL ONE (08:32)
[2022-10-14] MEDS ORDERED: PROPOFOL 200 MG/20 ML VIAL IVP ONE (08:58)
[2022-10-14] MEDS ORDERED: LACTATED RINGERS 400 ML IV ONE (09:15)
[2022-10-14 09:30] VITALS: BP 102/57
--- NOTE | 2022-10-14 11:17 | ANESTHESIA POST OP EVALUATION ---
Anesthesia Post Eval - Post Anesthesia Eval Vitals: Last Vital Signs Temp 36.2 C L 10/14/22 09:29 Pulse 59 L 10/14/22 09:29 Resp 16 10/14/22 09:29 BP 102/57 L 10/14/22 09:29 Pulse Ox 99 10/14/22 09:29 O2 Flow Rate CV Function Including HR & BP: Stable Pain Control: Satisfactory Nausea & Vomiting: Negative Mental Status: Baseline Respiratory Status: Airway Patent Hydration Status: Satisfactory Anesthesia Complications: None
== END 2022-10-14 07:12 | disposition home or self-care (01) ==
LOC: SDS 07:11
PROVIDERS: ATTEND Surgery
PROC: 0DBP8ZX Excision of Rectum, Via Natural or Artificial Opening Endoscopic, Diagnostic (ICD-10-PCS; principal; 2022-10-14 08:45)
DX: Z12.11 Encounter for screening for malignant neoplasm of colon (principal); K57.30 Diverticulosis of large intestine without perforation or abscess without bleeding; E11.9 Type 2 diabetes mellitus without complications; E66.9 Obesity, unspecified; Z68.34 Body mass index [BMI] 34.0-34.9, adult; Z79.84 Long term (current) use of oral hypoglycemic drugs
CPT/HCPCS: 45380; J7120

== ENCOUNTER 2023-09-26 07:40 | Outpatient (CLI) | payer MEDICAID ==
[2023-09-26 08:04] LABS: BASOPHILS # (AUTO) 0.1 10^3/uL (0.0-0.1); EOSINOPHILS # (AUTO) 0.2 10^3/uL (0.0-0.7); EOSINOPHILS % (AUTO) 3.6 %; HCT - HEMATOCRIT 39.8 % (37.0-47.0); HGB - HEMOGLOBIN 13.6 g/dL (12.0-16.0); LYMPHOCYTES # (AUTO) 2.4 10^3/uL (1.5-3.5); LYMPHOCYTES % (AUTO) 40.7 %; MEAN CORPUSCULAR HEMOGLOBIN 31.1 pg (27.0-31.0); MEAN CORPUSCULAR HGB CONC 34.2 g/dL (32.0-36.0); MEAN CORPUSCULAR VOLUME 91.1 fL (81.0-99.0); MEAN PLATELET VOLUME 9.3 fL (7.9-10.8); MONOCYTES # (AUTO) 0.4 10^3/uL (0.0-1.0); NEUTROPHILS # (AUTO) 2.8 10^3/uL (1.5-6.6); NEUTROPHILS % (AUTO) 47.4 %; PLT - PLATELET COUNT 283 10^3/uL (130-450); RED BLOOD COUNT 4.37 10^6/uL (4.20-5.40); RED CELL DISTRIBUTION WIDTH 11.9 % (12.0-15.0); WHITE BLOOD COUNT 5.9 x10^3/uL (4.8-10.8)
[2023-09-26 08:18] LABS: CREATININE,URINE 139.8 mg/dL; MICROALBUMIN,URINE 0.7 mg/dL
[2023-09-26 08:19] LABS: ALBUMIN 4.6 g/dL (3.2-5.5); ALBUMIN/GLOBULIN RATIO 1.5 (1.0-2.2); ALKALINE PHOSPHATASE 51 IU/L (42-121); ALT ALANINE AMINOTRANSFERASE 25 IU/L (10-60); AST ASPARTATE AMINOTRANSFERASE 19 IU/L (10-42); BILIRUBIN,TOTAL 0.4 mg/dL (0.2-1.0); BUN - BLOOD UREA NITROGEN 21 mg/dL (6-20); CALCIUM 9.7 mg/dL (8.5-10.3); CARBON DIOXIDE - CO2 29 mmol/L (21-32); CHLORIDE 103 mmol/L (101-111); CHOL/HDL RATIO 3.1 (<4.4); CHOLESTEROL 160 mg/dL; CREATININE 0.8 mg/dL (0.6-1.3); GFR - MDRD 77 (>89); GLUCOSE 114 mg/dL (74-104); HDL CHOLESTEROL 52 mg/dL; LDL CHOLESTEROL,CALCULATED 83 mg/dL; LDL/HDL RATIO 1.6 (<4.4); POTASSIUM 4.1 mmol/L (3.5-4.5); SODIUM 137 mmol/L (135-145); TOTAL PROTEIN 7.6 g/dL (6.4-8.9); TRIGLYCERIDES 126 mg/dL (48-352); VLDL CHOLESTEROL 25 mg/dL
[2023-09-26 08:30] LABS: THYROID STIMULATING HORMONE 3.53 uIU/mL (0.34-5.60)
[2023-09-26 14:00] LABS: ESTIMATED AVERAGE GLUCOSE 120 mg/dL (70-100); HEMOGLOBIN A1c% 5.8 % (4.27-6.07)
== END 2023-09-26 07:41 | disposition home or self-care (01) ==
LOC: LAB 07:40
PROVIDERS: ATTEND Physician Assistant
DX: E11.9 Type 2 diabetes mellitus without complications (principal)
CPT/HCPCS: 36415; 80053; 80061; 82043; 82570; 83036; 83721; 84443; 85025

== ENCOUNTER 2023-10-17 10:20 | Outpatient (CLI) | payer MEDICAID ==
[2023-10-17 10:33] LABS: BASOPHILS # (AUTO) 0.1 10^3/uL (0.0-0.1); BASOPHILS % (AUTO) 1.2 %; EOSINOPHILS # (AUTO) 0.2 10^3/uL (0.0-0.7); EOSINOPHILS % (AUTO) 2.7 %; HGB - HEMOGLOBIN 13.8 g/dL (12.0-16.0); LYMPHOCYTES # (AUTO) 2.4 10^3/uL (1.5-3.5); LYMPHOCYTES % (AUTO) 40.3 %; MEAN CORPUSCULAR HEMOGLOBIN 30.9 pg (27.0-31.0); MEAN CORPUSCULAR HGB CONC 33.7 g/dL (32.0-36.0); MEAN CORPUSCULAR VOLUME 91.9 fL (81.0-99.0); MEAN PLATELET VOLUME 8.9 fL (7.9-10.8); MONOCYTES # (AUTO) 0.3 10^3/uL (0.0-1.0); MONOCYTES % (AUTO) 4.9 %; NEUTROPHILS % (AUTO) 50.6 %; PLT - PLATELET COUNT 312 10^3/uL (130-450); RED BLOOD COUNT 4.46 10^6/uL (4.20-5.40); RED CELL DISTRIBUTION WIDTH 12.1 % (12.0-15.0)
[2023-10-17 10:47] LABS: ALBUMIN 4.7 g/dL (3.2-5.5); ALBUMIN/GLOBULIN RATIO 1.4 (1.0-2.2); BILIRUBIN,TOTAL 0.5 mg/dL (0.2-1.0); CALCIUM 9.9 mg/dL (8.5-10.3); CREATININE 0.8 mg/dL (0.6-1.3)
== END 2023-10-17 10:21 | disposition home or self-care (01) ==
LOC: LAB 10:20
PROVIDERS: ATTEND Nurse Practitioner
DX: L40.0 Psoriasis vulgaris (principal); L40.8 Other psoriasis; Z79.899 Other long term (current) drug therapy
CPT/HCPCS: 36415; 80053; 81599; 85025; 87070; 87205

== ENCOUNTER 2023-11-07 12:38 | Outpatient (CLI) | payer MEDICAID | END 2023-11-07 12:39 | disposition home or self-care (01) | LOC: DI 12:38 | PROVIDERS: ATTEND Physician Assistant | DX: Z82.41 Family history of sudden cardiac death (principal); Z82.49 Family history of ischemic heart disease and other diseases of the circulatory system | CPT/HCPCS: 93307 ==

== ENCOUNTER 2023-11-24 10:01 | Outpatient (CLI) | payer OTHER ==
[2023-11-24 10:12] LABS: BASOPHILS # (AUTO) 0.1 10^3/uL (0.0-0.1); BASOPHILS % (AUTO) 1.1 %; EOSINOPHILS # (AUTO) 0.2 10^3/uL (0.0-0.7); EOSINOPHILS % (AUTO) 2.5 %; HGB - HEMOGLOBIN 13.5 g/dL (12.0-16.0); LYMPHOCYTES # (AUTO) 2.8 10^3/uL (1.5-3.5); LYMPHOCYTES % (AUTO) 44.1 %; MEAN CORPUSCULAR HEMOGLOBIN 30.6 pg (27.0-31.0); MEAN CORPUSCULAR HGB CONC 33.8 g/dL (32.0-36.0); MEAN CORPUSCULAR VOLUME 90.7 fL (81.0-99.0); MEAN PLATELET VOLUME 9.2 fL (7.9-10.8); MONOCYTES # (AUTO) 0.4 10^3/uL (0.0-1.0); MONOCYTES % (AUTO) 5.8 %; NEUTROPHILS % (AUTO) 46.2 %; PLT - PLATELET COUNT 302 10^3/uL (130-450); RED BLOOD COUNT 4.41 10^6/uL (4.20-5.40); RED CELL DISTRIBUTION WIDTH 12.3 % (12.0-15.0); WHITE BLOOD COUNT 6.4 x10^3/uL (4.8-10.8)
[2023-11-24 10:32] LABS: ALBUMIN 4.5 g/dL (3.2-5.5); ALBUMIN/GLOBULIN RATIO 1.4 (1.0-2.2); BILIRUBIN,TOTAL 0.4 mg/dL (0.2-1.0); CALCIUM 9.7 mg/dL (8.5-10.3); CREATININE 0.8 mg/dL (0.6-1.3); POTASSIUM 4.1 mmol/L (3.5-4.5); TOTAL PROTEIN 7.7 g/dL (6.4-8.9)
== END 2023-11-24 10:02 | disposition home or self-care (01) ==
LOC: LAB 10:01
PROVIDERS: ATTEND Nurse Practitioner
DX: L40.0 Psoriasis vulgaris (principal); L40.8 Other psoriasis; Z79.899 Other long term (current) drug therapy
CPT/HCPCS: 36415; 80053; 85025